=== PATIENT | female | born 1960 | race Caucasian/White ===

== ENCOUNTER 2017-10-07 16:14 | Inpatient (IN) | payer MEDICAID ==
[~2017-10-07] VITALS: Ht 165.1 cm; Wt 67.2 kg
[2017-10-07 17:28] VITALS: BP 137/94
[2017-10-07] MEDS ORDERED: IBUP1TAB11 PO (18:00)
[2017-10-07] MEDS ORDERED: MULT-308 PO (18:00)
[2017-10-07] MEDS ORDERED: POLYETHYLENE GLYCOL 17 GM PACKET PO PRN (18:30)
[2017-10-07] MEDS ORDERED: ONDANSETRON 4 MG TABLET PO PRN (18:30)
[2017-10-07] MEDS: NICOTINE 7 MG/24 HR PATCH.TD24 TD SCH ×2 (18:30→20:03)
[2017-10-07] MEDS ORDERED: ACETAMINOPHEN 650 MG/20.3 ML UDC PO PRN (18:30)
[2017-10-07] MEDS ORDERED: DOCUSATE 100 MG CAPSULE PO PRN (18:30)
[2017-10-07 19:10] VITALS: BP 128/67
[2017-10-07] MEDS: ATORVASTATIN 40 MG TABLET PO SCH (20:03)
[2017-10-08 00:49] VITALS: BP 99/66
[2017-10-08 01:00] VITALS: BP 104/66
[2017-10-08 05:57] LABS: CHOL/HDL RATIO 2.5; LDL/HDL RATIO 1.1 (0.5-3.0)
[2017-10-08 07:40] VITALS: BP 116/74
[2017-10-08] MEDS: ASPIRIN 81 MG TABLET CHEW PO/NG SCH (08:39)
[2017-10-08 12:40] VITALS: BP 114/70
[2017-10-08] MEDS: NICOTINE 7 MG/24 HR PATCH.TD24 TD SCH (17:25)
[2017-10-08] MEDS: ATORVASTATIN 40 MG TABLET PO SCH (21:00)
[2017-10-08 21:35] VITALS: BP_SYST 101; BP_SYST 102; BP_DIAS 63; BP_DIAS 67
[2017-10-09 01:58] VITALS: BP 104/61
[2017-10-09 06:48] VITALS: BP 102/63
[2017-10-09] MEDS: ASPIRIN 81 MG TABLET CHEW PO/NG SCH (08:45)
[2017-10-09 12:10] VITALS: BP 112/65
[2017-10-09] MEDS ORDERED: ASPI-515 PO (12:14)
[2017-10-09] MEDS ORDERED: NICO-485 TD (12:14)
[2017-10-09] MEDS ORDERED: ATOR10TA PO (12:14)
== END 2017-10-09 14:41 | disposition home or self-care (01) | DRG 66 ==
LOC: 4EST 17:20 → DCLOUNGE 10-09 14:15
PROVIDERS: ADMIT Hospitalist; ATTEND Family Medicine
DX: I63.9 Cerebral infarction, unspecified (principal); F17.210 Nicotine dependence, cigarettes, uncomplicated
CPT/HCPCS: 36415; 80061; 81241; 85303; 85306; 85598; 85610; 85613; 85670; 85730; 85732; 86146; 86147; 93306; 93880